=== PATIENT | male | born 1960 | race Caucasian/White ===

== ENCOUNTER 2020-01-15 15:17 | Inpatient (IN) | payer OTHER, MEDICAID ==
[~2020-01-15] VITALS: Ht 177.8 cm; Wt 64.8 kg
[2020-01-15] MEDS ORDERED: PIPERACILLIN-TAZOB 3.375GM 100 ML IV ONE (16:00)
[2020-01-15] MEDS ORDERED: DOXYCYCLINE 100MG/250ML 250 ML IV ONE ×2 (16:00→19:00)
[2020-01-15 16:13] LABS: Basophils # (auto) 0.1 10 ^3/uL (0-0.2); Eosinophils # (auto) 0.1 10 ^3/uL (0-0.8); Hemoglobin 14.9 g/dL (13.5-17.5); Monocytes # (auto) 1.1 10 ^3/uL (0-1.3); Nucleated Red Blood Cells % 0.1 %
[2020-01-15 16:14] LABS: Basophils % (auto) 1.3 % (0.0-2.0); Eosinophils % (auto) 1.6 % (0.0-7.0); Hematocrit 43.7 % (41.0-53.0); Lymphocytes # (auto) 1.9 10 ^3/uL (0.4-5.4); Lymphocytes % (auto) 21.1 % (10.0-50.0); Mean Corpuscular Hemoglobin 34.1 pg (28.0-32.0); Mean Corpuscular Volume 100.3 fL (80.0-100.0); Monocytes % (auto) 11.9 % (0.0-12.0); Neutrophils # (auto) 5.8 10 ^3/uL (1.6-8.6); Neutrophils % (auto) 64.1 % (37.0-80.0); Platelet Count (auto) 246 10^3/uL (140-450); Red Blood Cells 4.36 10^6/uL (4.5-5.90); Red Cell Distribution Width 13.4 % (11.8-14.3); White Blood Cell 9.1 10^3/uL (4.4-10.8)
[2020-01-15 16:21] LABS: Urine Bacteria MANY /hpf (None Seen); Urine Blood 2+ /uL (Negative); Urine Mucus FEW (None Seen); Urine Specific Gravity 1.008 (1.001-1.035); Urine WBC 943 /hpf (0 - 3); Urine WBC Clumps PRESENT /hpf (None Seen)
[2020-01-15 16:31] LABS: Albumin 3.7 g/dL (3.4-5.0); Calcium 8.5 mg/dL (8.5-10.1); Potassium 3.4 mmol/L (3.5-5.1)
[2020-01-15 16:33] LABS: BUN/Creatinine Ratio 12.6
[2020-01-15 16:36] LABS: Bilirubin, Total 0.5 mg/dL (0.2-1.0); Total Protein 7.8 g/dL (6.4-8.2)
[2020-01-15] MEDS ORDERED: MORPHINE SULF INJ 2 MG/ML SYRINGE 1ML IV PRN (17:30)
[2020-01-15] MEDS ORDERED: ONDANSETRON HCL 4 MG/2 ML VIAL IV PRN (17:30)
[2020-01-15] MEDS ORDERED: NITROGLYCERIN 0.4 MG SL TAB SL PRN (17:30)
[2020-01-15] MEDS ORDERED: POTASSIUM EFFERVESENT TAB 25 MEQ PO ONE (17:30)
[2020-01-15 17:32] LABS: INR 1.04 (0.9-1.15); Partial Thromboplastin Time 33.3 sec (23.64-32.05)
[2020-01-15] MEDS: PIPERACILLIN-TAZOB 3.375GM 100 ML IV SCH (17:41)
[2020-01-15] MEDS: SODIUM CHLORIDE 0.9% 1,000 ML IV SCH (17:45)
--- NOTE | 2020-01-15 19:20 | NUR ---
Opening Shift Note Assumed care of patient, awake, alert, and oriented X 4. No S/S of SOB, complains of testicular pain 5/10, will medicate for pain PRN. Bed is low, locked, two side rails raised, and call rosado is within reach, Instructed on POC and to call for assist PRN, will continue to monitor for changes Q1hr and PRN.
[2020-01-15 20:00] VITALS: BP 104/60
[2020-01-15] MEDS: ACETAMINOPHEN 500 MG TAB PO PRN (20:17)
[2020-01-15 22:00] VITALS: BP 104/60
[2020-01-15] MEDS: DOCUSATE SOD 100 MG CAP PO SCH (22:00)
[2020-01-16] MEDS: PIPERACILLIN-TAZOB 3.375GM 100 ML IV SCH ×3 (00:25→14:16)
[2020-01-16] MEDS: SODIUM CHLORIDE 0.9% 1,000 ML IV SCH ×3 (03:09→23:24)
[2020-01-16 05:00] VITALS: BP 115/64
[2020-01-16 05:17] LABS: Basophils # (auto) 0.1 10 ^3/uL (0-0.2); Basophils % (auto) 1.1 % (0.0-2.0); Eosinophils # (auto) 0.1 10 ^3/uL (0-0.8); Eosinophils % (auto) 1.7 % (0.0-7.0); Hematocrit 42.3 % (41.0-53.0); Hemoglobin 14.3 g/dL (13.5-17.5); Lymphocytes # (auto) 1.7 10 ^3/uL (0.4-5.4); Lymphocytes % (auto) 21.5 % (10.0-50.0); Mean Corpuscular Hemoglobin 33.8 pg (28.0-32.0); Mean Corpuscular Hgb Conc. 33.9 g/dL (32.0-36.0); Mean Corpuscular Volume 99.8 fL (80.0-100.0); Monocytes # (auto) 1.2 10 ^3/uL (0-1.3); Neutrophils # (auto) 4.7 10 ^3/uL (1.6-8.6); Neutrophils % (auto) 60.7 % (37.0-80.0); Nucleated Red Blood Cells % 0.1 %; Platelet Count (auto) 229 10^3/uL (140-450); Red Blood Cells 4.24 10^6/uL (4.5-5.90); Red Cell Distribution Width 13.2 % (11.8-14.3); White Blood Cell 7.8 10^3/uL (4.4-10.8)
[2020-01-16 05:40] LABS: Calcium 8.7 mg/dL (8.5-10.1); Potassium 4.3 mmol/L (3.5-5.1)
[2020-01-16 05:44] LABS: BUN/Creatinine Ratio 12.6
--- NOTE | 2020-01-16 07:20 | NUR ---
OPENING NOTE ASSUMED CARE OF PT. ALERT AND ORIENTED. NO S/S SOB OR DISTRESS. SAFETY PRECAUTIONS IN PLACE. BED SET TO LOWEST POSITION, BEDSIDE RAILS UP X2, CALL LIGHT WITHIN REACH. INSTRUCTED PT TO CALL FOR ASSISTANCE. UPDATED PT ON PLAN OF CARE. PT VERBALIZED UNDERSTANDING. WILL CONTINUE TO MONITOR Q1HR AND PRN.
[2020-01-16 08:00] VITALS: BP 104/68
[2020-01-16] MEDS ORDERED: cefTRIAXone 1GM/50ML D5W 50 ML IV SCH (09:00)
[2020-01-16] MEDS: FAMOTIDINE 20 MG TAB PO SCH (10:00)
[2020-01-16] MEDS: DOCUSATE SOD 100 MG CAP PO SCH ×2 (10:00→21:50)
[2020-01-16] MEDS: DOXYCYCLINE 100MG/250ML 250 ML IV SCH ×2 (10:32→21:50)
[2020-01-16 11:07] LABS: Cholesterol 111 mg/dL (< 200); HDL Cholesterol 48 mg/dL (40-59); LDL Cholesterol 58 mg/dL (< 100); Triglycerides 54 mg/dL (< 150)
[2020-01-16 12:00] VITALS: BP 120/71
--- NOTE | 2020-01-16 13:43 | NUR ---
MELLO CATH ORDERED MELLO CATH PLACEMENT FOR RETENTION. PATIENT IS REFUSING BLADDER SCAN AND MELLO CATH PLACEMENT. THIS NURSE EDUCATED THE PATIENT ON THE RISK AND BENEFITS. PATIENT VERBALIZED UNDERSTANDING. PATIENT IS STILL REFUSING MELLO CATH. PATIENT IS VOIDING. MD WILL BE INFORMED. WILL CONTINUE TO MONITOR Q1HR AND PRN.
--- NOTE | 2020-01-16 13:51 | NUR ---
PAGED DR. MALDONADO RE: PATIENT REFUSING MELLO CATH. NO NEW ORDERS. WILL CONTINUE TO MONITOR
--- NOTE | 2020-01-16 14:18 | NUR ---
PATIENT IS REFUSING DRESSING AND ELEVATION OF SCROTUM PER MD ORDER. EDUCATED THE PATIENT. PATIENT VERBALIZED UNDERSTANDING. STILL REFUSING TREATMENT. WILL INFORM MD. WILL CONTINUE TO MONITOR.
[2020-01-16 17:01] VITALS: BP 112/70
[2020-01-16] MEDS ORDERED: CLON0.5T PO (18:19)
[2020-01-16] MEDS ORDERED: TRAM50TA2 PO (18:19)
[2020-01-16] MEDS ORDERED: ARIP1INJ2 IM (18:19)
[2020-01-16] MEDS ORDERED: ALPR0.5T7 PO (18:19)
[2020-01-16] MEDS ORDERED: DOCU100T15 PO (18:19)
--- NOTE | 2020-01-16 19:42 | NUR ---
Opening Shift Note Assumed care of patient, awake and alert. No S/S of distress/SOB or pain. patient ambulated to the restroom without assistance steady gait. Patient educated on placement of michelle risks and benefits and dressing change per md order. patient refused. patient refused for me to asses bladder for distention and perform bladder scan.patient verbalized refusal. reeducated patient and instructed on POC and to call for assist PRN, will continue to monitor for changes Q1hr and PRN. bed in low position and call light within reach.
--- NOTE | 2020-01-16 21:44 | NUR ---
patient refusing lab draw. educated patient on benefit of having his blood drawn. patient verbalized refusal.
[2020-01-16 22:00] VITALS: BP 117/67
[2020-01-16 22:02] LABS: Free T4 (Free Thyroxine) 0.99 ng/dL (0.89-1.76)
[2020-01-16 22:03] LABS: Folate (Folic Acid) 9.58 ng/mL (5.38-24)
--- NOTE | 2020-01-16 23:43 | NUR ---
patient allowed me to apply dressing per md orders. patient continues to refuse michelle. 300ml of yellow urine output.
--- NOTE | 2020-01-16 23:43 | NUR ---
IV removal/access IV leaking. IV DC'd with clean sterile technique, catheter fully intact.Pressure dressing applied to site. Patient tolerated well. IV access obtained, via clean sterile technique by inserting 22 gauge catheter at left forearm after 1 attempt. IV secured properly. No trauma to site. Patient tolerated well.
--- NOTE | 2020-01-16 23:43 | NUR ---
Opening Shift Note Assumed care of patient, awake and alert. No S/S of distress/SOB or pain. Insructed on POC and to callfor assist PRN, will continue to monitor for changes Q1hr and PRN. Addendum: 01/16/20 at 9582 by DOMONIQUE PROCTOR RN RN wrong note
[2020-01-17 04:06] LABS: RPR Non Reactive (Non Reactive)
[2020-01-17 05:00] VITALS: BP 122/59
[2020-01-17] MEDS: PIPERACILLIN-TAZOB 3.375GM 100 ML IV SCH ×3 (05:12→11:47)
--- NOTE | 2020-01-17 05:37 | NUR ---
patient continues to refuse to have his labs drawn. per shellfish processing laborer she will return at 0900 to attempt again. patient reeducated on benefits of having blood drawn per patient " i get weak." will endorse care to dayshift rn
[2020-01-17 06:00] LABS: Sodium Urine 68 mmol/L (40-220)
[2020-01-17 06:05] LABS: Creatinine, Urine 36 mg/dL (30.0-125.0)
--- NOTE | 2020-01-17 07:09 | NUR ---
REPORT GIVEN TO DAYSHIFTR RN PATIENT DENIES SOB DISTRESS OR PAIN
--- NOTE | 2020-01-17 07:20 | NUR ---
OPENING NOTE ASSUMED CARE OF PT. ALERT AND ORIENTED. NO S/S SOB OR DISTRESS. SAFETY PRECAUTIONS IN PLACE. BED SET TO LOWEST POSITION, BEDSIDE RAILS UP X2, CALL LIGHT WITHIN REACH. INSTRUCTED PT TO CALL FOR ASSISTANCE. UPDATED PT ON PLAN OF CARE. WILL CONTINUE TO MONITOR Q1HR AND PRN.
[2020-01-17 08:00] VITALS: BP 113/72
[2020-01-17] MEDS: SODIUM CHLORIDE 0.9% 1,000 ML IV SCH ×2 (09:24→19:24)
[2020-01-17] MEDS ORDERED: CYANOCOBALAMIN (B-12) 1000 MCG/1 ML VIAL SUBCUT ONE (11:15)
[2020-01-17] MEDS: ENOXAPARIN SOD 40 MG/0.4 ML SYRINGE SC SCH (11:30)
[2020-01-17] MEDS: FAMOTIDINE 20 MG TAB PO SCH (11:30)
[2020-01-17] MEDS: DOCUSATE SOD 100 MG CAP PO SCH ×2 (11:30→22:00)
[2020-01-17] MEDS: DOXYCYCLINE 100MG/250ML 250 ML IV SCH ×2 (11:30→22:00)
[2020-01-17 12:00] VITALS: BP 123/74
[2020-01-17] MEDS: HYDROcodone-ACET 5/325MG TAB PO PRN (14:17)
[2020-01-17] MEDS ORDERED: LIDOCAINE 2% JELLY 11ml (GLYDO) UR ONE (15:15)
[2020-01-17] MEDS: MORPHINE SULF INJ 2 MG/ML SYRINGE 1ML IV PRN (15:22)
[2020-01-17 17:03] VITALS: BP 107/65
--- NOTE | 2020-01-17 17:43 | NUR ---
MELLO CATH UNSUCCESSFUL MELLO CATH INSERTION, ATTEMPTED BY DOUG MUHAMMAD.
[2020-01-17] MEDS: PIPERACILLIN-TAZO 4.5GM 100 ML IV SCH (18:22)
[2020-01-17 22:00] VITALS: BP 100/55
[2020-01-18 05:00] VITALS: BP_SYST 121; BP_DIAS 74; BP_DIAS 84
[2020-01-18] MEDS: SODIUM CHLORIDE 0.9% 1,000 ML IV SCH ×2 (05:24→15:24)
[2020-01-18] MEDS: PIPERACILLIN-TAZO 4.5GM 100 ML IV SCH ×4 (06:00→17:16)
--- NOTE | 2020-01-18 08:45 | NUR ---
OFF UNIT PATIENT OFF UNIT VIA BED TO PREOP. NO SING OF SOB/DISTRESS NOTED.
[2020-01-18 09:14] LABS: Hepatitis B Surface Antibody Negative
[2020-01-18] MEDS ORDERED: levoFLOXacin 500MG 100 ML IV ONE (09:31)
[2020-01-18 09:32] VITALS: BP 131/70
[2020-01-18] MEDS ORDERED: LIDOCAINE 1% HCL (LOCAL ANESTH.) INJ 20ML MDV ONE (09:39)
[2020-01-18] MEDS ORDERED: BUPIVACAINE 0.25% INJ 50ML VIAL ONE (09:39)
[2020-01-18 09:48] LABS: Hepatitis A Total Antibody Positive
[2020-01-18] MEDS ORDERED: PROPOFOL 10 MG/ML 20 ML IV ONE (09:51)
[2020-01-18] MEDS ORDERED: fentaNYL CITRATE 100 MCG/2 ML VL ONE (09:51)
[2020-01-18] MEDS: DOCUSATE SOD 100 MG CAP PO SCH ×2 (10:00→22:00)
[2020-01-18] MEDS: DOXYCYCLINE 100MG/250ML 250 ML IV SCH ×2 (10:00→22:00)
[2020-01-18] MEDS: FAMOTIDINE 20 MG TAB PO SCH (10:00)
[2020-01-18] MEDS: CYANOCOBALAMIN 500 MCG TAB PO SCH (10:00)
[2020-01-18] MEDS: ENOXAPARIN SOD 40 MG/0.4 ML SYRINGE SC SCH (10:00)
[2020-01-18 10:10] LABS: Hepatitis B Core Total AB Negative; Hepatitis B Surface Antigen Negative (Negative); Hepatitis C Antibody Negative (Negative)
--- NOTE | 2020-01-18 11:30 | NUR ---
BACK ON UNIT PATIENT BACK ON UNIT VIA BED FROM POSTOP. NO S/S OF SOB/DISTRESS NOTED. DRESSING CLEAN DRY AND INTACT. WILL CONTINUE TO MONITOR Q1HR AND PRN.
[2020-01-18 12:28] VITALS: BP 102/72
[2020-01-18] MEDS: HYDROcodone-ACET 5/325MG TAB PO PRN (14:04)
[2020-01-18 17:15] VITALS: BP 104/73
[2020-01-18 22:00] VITALS: BP 107/63
[2020-01-19] MEDS: SODIUM CHLORIDE 0.9% 1,000 ML IV SCH ×3 (01:24→21:24)
[2020-01-19] MEDS: MORPHINE SULF INJ 2 MG/ML SYRINGE 1ML IV PRN (04:05)
[2020-01-19 05:00] VITALS: BP 104/67
[2020-01-19] MEDS: PIPERACILLIN-TAZO 4.5GM 100 ML IV SCH ×4 (06:00→18:20)
--- NOTE | 2020-01-19 08:00 | NUR ---
Opening Shift Note Assumed care of patient, awake and alert ambulating to bathroom. No S/S of distress/SOB or pain. Instructed on POC and to call for assist PRN, will continue to monitor for changes Q1hr and PRN.
[2020-01-19 08:41] VITALS: BP 111/73
[2020-01-19] MEDS: FAMOTIDINE 20 MG TAB PO SCH (10:09)
[2020-01-19] MEDS: DOXYCYCLINE 100MG/250ML 250 ML IV SCH ×2 (10:09→21:25)
[2020-01-19] MEDS: DOCUSATE SOD 100 MG CAP PO SCH ×2 (10:09→21:25)
[2020-01-19] MEDS: ENOXAPARIN SOD 40 MG/0.4 ML SYRINGE SC SCH (10:10)
[2020-01-19] MEDS: CYANOCOBALAMIN 500 MCG TAB PO SCH (10:10)
[2020-01-19 13:00] VITALS: BP 115/68
--- NOTE | 2020-01-19 13:14 | NUR ---
Nutrition Assessment Notes Please refer to link for full assessment notes. Est energy needs: 2083-2726 kcals (25-30 kcal/kgBW) Est protein needs: 49-61 gms/day (0.8-1.0 gm/kgBW) Will continue to monitor and reassess prn. Addendum: 01/19/20 at [address] Amended: Links added.
--- NOTE | 2020-01-19 14:15 | NUR ---
Received referral to see pt regarding Discharge plans. hide mill worker received referral for pt to go to rehab for a week or so. Pt states he does not want to go as he currently lives in a Board and care and would rather return there on discharge. Pt was adamant about returning back to the [facility] on Wednesday. Addendum: 01/22/20 at 1427 by AYESHA GONZALES Amended: Links added.
--- NOTE | 2020-01-19 14:50 | NUR ---
Patient states he does not want to go to SNF. He want's to go home. He has someone at home that can assist him, so he wants to be discharged home. Will notify
--- NOTE | 2020-01-19 16:29 | NUR ---
Refusing SNF Dr. River notified that patient refusing SNF placement.
--- NOTE | 2020-01-19 16:34 | NUR ---
Received Social Service consult to place pt in a SNF. However, Halal Meat Packer went to speak with pt and he stated he did not want to go to a snf as he already lived in a board and care. Pt stated he had lived there for 3 yrs. Spoke to his nurse who already knew about his decision.
[2020-01-19 17:00] VITALS: BP 112/75
[2020-01-19] MEDS: TAMSULOSIN HYDROCHLORIDE 0.4 MG CAP PO SCH (18:16)
--- NOTE | 2020-01-19 19:35 | NUR ---
Opening Shift Note Assumed care of patient, awake and alert. No S/S of distress/SOB or pain. Bed in lowest locked position, side rails up x2, call light within reach. Instructed on POC and to call for assist PRN, will continue to monitor for changes Q1hr and PRN. Addendum: 01/20/20 at 0207 by UNIQUE ESPINAL RN RN ADDITION: Dressing to left testicle clean, dry, and intact.
[2020-01-19] MEDS: HYDROcodone-ACET 5/325MG TAB PO PRN (21:26)
[2020-01-19 22:00] VITALS: BP 114/69
--- NOTE | 2020-01-19 22:26 | NUR ---
Patient reporting 6/10 testicular pain, medicated with [place] as ordered at 21:26 (see emar). Patient reassessed at this time, reports pain now 0/10. No s/s of distress. Will continue to monitor.
--- NOTE | 2020-01-19 22:30 | NUR ---
Patient refusing dressing change tonight, requesting to have it in the morning, reports he "wants to sleep tonight". Patient educated on importance of following MD's orders to decrease risk of infection, patient continuing to refuse at this time. No s/s of distress, will continue to monitor.
[2020-01-20] MEDS: PIPERACILLIN-TAZO 4.5GM 100 ML IV SCH ×4 (00:09→18:08)
[2020-01-20 05:00] VITALS: BP 103/59
--- NOTE | 2020-01-20 05:00 | NUR ---
Dressing Change Iodaform packing acquired by charge nurse Tiffanie ESTEBAN. With the assistance of Jewell ESTEBAN, site cleansed with sterile normal saline, iodaform packing changed with sterile procedure, and site covered with sterile gauze. Patient tolerated well. No s/s of distress, will continue care.
--- NOTE | 2020-01-20 05:15 | NUR ---
Patient educated on michelle care including to keep bag below bladder, keep nataliya area clean, and how to drain bag. Patient verbalized understanding. Will continue care and continue to enforce education throughout remainder of the shift.
[2020-01-20 05:57] LABS: Basophils # (auto) 0.1 10 ^3/uL (0-0.2); Basophils % (auto) 1.1 % (0.0-2.0); Eosinophils # (auto) 0.2 10 ^3/uL (0-0.8); Eosinophils % (auto) 1.9 % (0.0-7.0); Hematocrit 43.7 % (41.0-53.0); Hemoglobin 14.9 g/dL (13.5-17.5); Lymphocytes % (auto) 24.2 % (10.0-50.0); Mean Corpuscular Hemoglobin 33.6 pg (28.0-32.0); Mean Corpuscular Volume 98.9 fL (80.0-100.0); Monocytes # (auto) 1.3 10 ^3/uL (0-1.3); Monocytes % (auto) 15.3 % (0.0-12.0); Neutrophils # (auto) 4.8 10 ^3/uL (1.6-8.6); Neutrophils % (auto) 57.5 % (37.0-80.0); Nucleated Red Blood Cells % 0.9 %; Platelet Count (auto) 228 10^3/uL (140-450); Red Blood Cells 4.42 10^6/uL (4.5-5.90); Red Cell Distribution Width 13.1 % (11.8-14.3); White Blood Cell 8.3 10^3/uL (4.4-10.8)
[2020-01-20 06:08] LABS: Potassium 4.4 mmol/L (3.5-5.1)
[2020-01-20 06:10] LABS: BUN/Creatinine Ratio 15.3; Calcium 8.7 mg/dL (8.5-10.1)
--- NOTE | 2020-01-20 07:03 | NUR ---
Closing Note Patient sitting up in bed, awake and alert. No s/s of distress. Call light within reach. Care endorsed to dayshift RN.
[2020-01-20 09:01] VITALS: BP 100/61
[2020-01-20] MEDS: DOXYCYCLINE 100MG/250ML 250 ML IV SCH ×2 (11:50→20:58)
[2020-01-20] MEDS: DOCUSATE SOD 100 MG CAP PO SCH ×2 (11:51→20:58)
[2020-01-20] MEDS: MECLIZINE HCL 25 MG TAB PO SCH ×3 (11:51→20:58)
[2020-01-20] MEDS: SODIUM CHLORIDE 0.9% 1,000 ML IV SCH ×2 (11:51→18:08)
[2020-01-20] MEDS: ENOXAPARIN SOD 40 MG/0.4 ML SYRINGE SC SCH (11:51)
[2020-01-20] MEDS: CYANOCOBALAMIN 500 MCG TAB PO SCH (11:51)
[2020-01-20] MEDS: FAMOTIDINE 20 MG TAB PO SCH (11:51)
[2020-01-20 13:00] VITALS: BP 97/63
[2020-01-20 16:50] VITALS: BP 110/57
--- NOTE | 2020-01-20 18:02 | NUR ---
PRN WOUND CARE PERFORMED. PT TOLERATED WELL.
[2020-01-20] MEDS: TAMSULOSIN HYDROCHLORIDE 0.4 MG CAP PO SCH (18:08)
--- NOTE | 2020-01-20 19:30 | NUR ---
Opening Shift Note Assumed care of patient, eyes closed, respirations even and unlabored, appears asleep. No S/S of distress/SOB or pain. Bed in lowest locked position, side rails up x2, call light within reach. Dressing to left testicle clean, dry, and intact. Instructed on POC and to call for assist PRN, will continue to monitor for changes Q1hr and PRN.
[2020-01-20 20:00] VITALS: BP 102/70
[2020-01-20] MEDS: HYDROcodone-ACET 5/325MG TAB PO PRN (21:12)
[2020-01-20 22:00] VITALS: BP 102/70
--- NOTE | 2020-01-20 22:12 | NUR ---
Patient reporting 6/10 testicular pain, medicated with [place] as ordered at 21:12 (see emar). Patient reassessed at this time, reports pain now 0/10. No s/s of distress. Will continue to monitor.
--- NOTE | 2020-01-20 23:30 | NUR ---
IV removal and insertion IV to right forearm DC'd accidentally by patient, catheter fully intact. Pressure dressing applied to site. Patient tolerated well. IV access obtained, via clean sterile technique by inserting 22 gauge catheter to patient's right forearm after two attempts. IV secured properly. No trauma to site. Patient tolerated well. Doxycycline continuing to infuse now that IV access has been obtained, will administer Zosyn once Doxycycline has finished infusing. No s/s of distress. Will continue to monitor.
[2020-01-21] MEDS: PIPERACILLIN-TAZO 4.5GM 100 ML IV SCH ×5 (01:18→23:23)
[2020-01-21] MEDS: SODIUM CHLORIDE 0.9% 1,000 ML IV SCH ×3 (03:28→23:24)
[2020-01-21 05:00] VITALS: BP 103/67
[2020-01-21] MEDS: MECLIZINE HCL 25 MG TAB PO SCH ×4 (06:05→21:41)
[2020-01-21 06:19] LABS: Basophils # (auto) 0.1 10 ^3/uL (0-0.2); Eosinophils # (auto) 0.4 10 ^3/uL (0-0.8); Eosinophils % (auto) 5.6 % (0.0-7.0); Hematocrit 42.8 % (41.0-53.0); Hemoglobin 14.8 g/dL (13.5-17.5); Lymphocytes # (auto) 1.8 10 ^3/uL (0.4-5.4); Lymphocytes % (auto) 24.6 % (10.0-50.0); Mean Corpuscular Hemoglobin 34.4 pg (28.0-32.0); Mean Corpuscular Hgb Conc. 34.6 g/dL (32.0-36.0); Mean Corpuscular Volume 99.6 fL (80.0-100.0); Monocytes # (auto) 0.9 10 ^3/uL (0-1.3); Monocytes % (auto) 12.6 % (0.0-12.0); Neutrophils # (auto) 4.1 10 ^3/uL (1.6-8.6); Neutrophils % (auto) 56.2 % (37.0-80.0); Nucleated Red Blood Cells % 0.1 %; Platelet Count (auto) 208 10^3/uL (140-450); Red Cell Distribution Width 13.3 % (11.8-14.3); White Blood Cell 7.3 10^3/uL (4.4-10.8)
[2020-01-21 06:35] LABS: BUN/Creatinine Ratio 15.5; Calcium 9.3 mg/dL (8.5-10.1); Potassium 4.2 mmol/L (3.5-5.1)
--- NOTE | 2020-01-21 06:50 | NUR ---
Closing Note Patient sitting up in bed, awake and alert. No s/s of distress. Call light within reach. Sitter at bedside. Care endorsed to dayshift RN.
--- NOTE | 2020-01-21 07:55 | NUR ---
OPENING SHIFT NOTE Resumed care of patient. PT is awake and alert. No S/S of distress/SOB. Instructed on POC and to call for assist PRN, will continue to monitor for changes Q1hr and PRN.
[2020-01-21 08:52] VITALS: BP 102/69
[2020-01-21] MEDS: FAMOTIDINE 20 MG TAB PO SCH (09:46)
[2020-01-21] MEDS: DOXYCYCLINE 100MG/250ML 250 ML IV SCH ×2 (09:46→21:42)
[2020-01-21] MEDS: ENOXAPARIN SOD 40 MG/0.4 ML SYRINGE SC SCH (09:47)
[2020-01-21] MEDS: DOCUSATE SOD 100 MG CAP PO SCH ×3 (09:47→22:00)
[2020-01-21] MEDS: HYDROcodone-ACET 5/325MG TAB PO PRN ×2 (09:47→21:42)
[2020-01-21] MEDS: CYANOCOBALAMIN 500 MCG TAB PO SCH (09:47)
[2020-01-21 13:00] VITALS: BP 114/58
[2020-01-21 16:45] VITALS: BP 107/70
[2020-01-21] MEDS: TAMSULOSIN HYDROCHLORIDE 0.4 MG CAP PO SCH (17:44)
--- NOTE | 2020-01-21 20:00 | NUR ---
Opening Shift Note Assumed care of patient, awake and alert. No S/S of distress/SOB or pain. Instructed on POC and to call for assist PRN, will continue to monitor for changes Q1hr and PRN.Dressing in the scrotum dry and intact.
--- NOTE | 2020-01-21 21:42 | NUR ---
Medicated with [place] tab. one .p.o for scrotal pain -05/03.
[2020-01-21 21:44] VITALS: BP 112/73
[2020-01-22 02:28] VITALS: BP 94/60
[2020-01-22] MEDS: MECLIZINE HCL 25 MG TAB PO SCH ×4 (05:21→22:32)
[2020-01-22] MEDS: PIPERACILLIN-TAZO 4.5GM 100 ML IV SCH ×3 (05:22→18:13)
[2020-01-22 05:29] VITALS: BP 108/66
--- NOTE | 2020-01-22 07:06 | NUR ---
Report given to Jennifer Taylor, patient is resting no distress.
--- NOTE | 2020-01-22 07:15 | NUR ---
Opening Shift Note Assumed care of patient, awake and alert. No S/S of distress/SOB or pain. Instructed on POC and to call for assist PRN, will continue to monitor for changes Q1hr and PRN. Fall precautions in place per safety protocol.
[2020-01-22 08:00] VITALS: BP 102/66
[2020-01-22] MEDS: SODIUM CHLORIDE 0.9% 1,000 ML IV SCH ×2 (09:24→22:33)
[2020-01-22] MEDS: DOCUSATE SOD 100 MG CAP PO SCH ×2 (10:00→22:32)
[2020-01-22] MEDS: ENOXAPARIN SOD 40 MG/0.4 ML SYRINGE SC SCH (10:24)
[2020-01-22] MEDS: FAMOTIDINE 20 MG TAB PO SCH (10:24)
[2020-01-22] MEDS: DOXYCYCLINE 100MG/250ML 250 ML IV SCH ×2 (10:24→22:32)
[2020-01-22] MEDS: CYANOCOBALAMIN 500 MCG TAB PO SCH (10:25)
[2020-01-22] MEDS: HYDROcodone-ACET 5/325MG TAB PO PRN (10:43)
--- NOTE | 2020-01-22 10:51 | NUR ---
Patient requesting pain medications for pain 04/03. Administered Ulysses per pain sliding scale. Dressing changed done using sterile technique. Patient tolerated well. Will cont to monitor patient.
--- NOTE | 2020-01-22 11:35 | NUR ---
Hospitalist at bedside MD River at bedside, aware of patient status. No new orders received at this time. MD River spoke with caregiver Melinda and updated on POC.
[2020-01-22 12:00] VITALS: BP 106/66
--- NOTE | 2020-01-22 14:00 | NUR ---
IV insertion IV access obtained, via clean sterile technique by inserting 20 gauge catheter at the left FA after 1 attempt. IV secured properly. No trauma to site. Patient tolerated procedure well. Old IV DC'd with sterile technique due to infiltration, catheter fully intact. Pressure dressing applied to site. Patient tolerated procedure well.
--- NOTE | 2020-01-22 14:24 | NUR ---
Received Social Service consult for SNF placement for wound care and rehab Zosyn 4.5 q 8hrs for 5 days IV for UTI. Addendum: 01/22/20 at 1427 by AYESHA WHITFIELD SS Amended: Links added. Addendum: 01/22/20 at 1512 by AYESHA WHITFIELD SS The pt's chart was ffaxed over to [facility].
--- NOTE | 2020-01-22 16:10 | NUR ---
re-assessment Per ss consult SNF for IV ABX. Patient agrees to SNF for IV ABX. Per Ciarra at [facility] she has accepted patient to room 224[address] and Dr Lozano is the accepting MD. Marii financial center manager is getting auth for SNF and transport. Addendum: 01/22/20 at 1614 by Carmela Koroma Amended: Links added.
--- NOTE | 2020-01-22 16:38 | NUR ---
I faxed SNF order to [facility]-letting them know we need authorization for [facility]-that they are willing to take patient pending authorization. I called [facility] Nail Making Machine Setter Dusty-she said as of a week ago they are not authorizing [facility] for any of their patients.
--- NOTE | 2020-01-22 16:42 | NUR ---
Received referral to fax pt's information to [facility]. The facility did not want to take pt due to his smoking. The pt's chart was faxed to [facility] who did accept the pt. However, [facility] would not approve the pt to go their. Pt's packet was faxed to Kathi. Awaiting decision.
[2020-01-22 17:00] VITALS: BP 106/63
[2020-01-22] MEDS: TAMSULOSIN HYDROCHLORIDE 0.4 MG CAP PO SCH (18:13)
--- NOTE | 2020-01-22 19:25 | NUR ---
Endorsed care to sera Yu. Patient restin gin bed, no distress, sob, or pain noted.
[2020-01-22] MEDS: ACETAMINOPHEN 500 MG TAB PO PRN (19:42)
[2020-01-23] MEDS: PIPERACILLIN-TAZO 4.5GM 100 ML IV SCH ×4 (00:28→18:00)
[2020-01-23 05:00] VITALS: BP 98/55
[2020-01-23] MEDS: SODIUM CHLORIDE 0.9% 1,000 ML IV SCH (05:24)
[2020-01-23] MEDS: MECLIZINE HCL 25 MG TAB PO SCH ×3 (06:33→18:00)
--- NOTE | 2020-01-23 07:20 | NUR ---
Opening shift note Care of patient assumed from NOC RN. Patient is AOx4, no s/s of pain, sob, or distress noted at this time. Bed is in lowest locked position, side rails up x2 and call light is within reach. I updated patient on plan of care and patient verbalized understanding. I will continue to monitor Q1HR and PRN.
[2020-01-23 08:00] VITALS: BP 100/73
[2020-01-23] MEDS: DOCUSATE SOD 100 MG CAP PO SCH (10:00)
[2020-01-23] MEDS: FAMOTIDINE 20 MG TAB PO SCH (10:40)
[2020-01-23] MEDS: CYANOCOBALAMIN 500 MCG TAB PO SCH (10:41)
[2020-01-23] MEDS: ENOXAPARIN SOD 40 MG/0.4 ML SYRINGE SC SCH (10:41)
[2020-01-23] MEDS: DOXYCYCLINE 100MG/250ML 250 ML IV SCH (10:42)
[2020-01-23] MEDS: ACETAMINOPHEN 500 MG TAB PO PRN (10:55)
[2020-01-23 12:00] VITALS: BP 112/68
--- NOTE | 2020-01-23 13:00 | NUR ---
Call placed to high school social studies tutor Left a message to Carmela moreno regarding SNF placement. Per MD River he would like patient to be sent [facility], updated MD that [facility] will not take the patient and that ss is awaiting call back from [facility] for placement.
--- NOTE | 2020-01-23 13:21 | NUR ---
I called [facility] tool planner Teresita [phone] and left message requesting authorization for [facility]-awaiting return call.
--- NOTE | 2020-01-23 14:26 | NUR ---
I received a message from Teresita at [facility] requesting PT notes and wound care notes/order. I faxed PT eval and wound care order to [facility].
--- NOTE | 2020-01-23 14:38 | NUR ---
I called [facility] master planner Teresita [phone] and left message asking again for authorization for [facility]-awaiting return call.
--- NOTE | 2020-01-23 14:40 | NUR ---
Spoke to [facility] Received call from Mendy from [facility] transport regarding patients transport location and placement. Referred them to call Carmela Koroma at extension [phone] regarding transfer information. Also provided her with my extension.
--- NOTE | 2020-01-23 15:29 | NUR ---
Called Social service Called Marii Montoya regarding the call i received from [facility] transport. Informed her that [facility] wanted the address for picker and sorter load and unload and drop off. She stated that she will be contacting [facility] regarding transport. She stated that placement is still pending with Kathi.
--- NOTE | 2020-01-23 15:48 | NUR ---
I received a call from [facility] brand planner Teresita-the authorization number for [facility] is [id number] and the authorization for transportation is [id number].
--- NOTE | 2020-01-23 16:15 | NUR ---
Spoke to mental health social worker Spoke to JANET Kennedy regarding placement. Per Marcia patient will be going to [facility] to room 405. The accepting physician is Dr. Brewer and [facility] will be picking patient up at 1800.
--- NOTE | 2020-01-23 16:23 | NUR ---
I called [facility] ([phone]) and spoke with Li-provided her with [facility] auth number [id number] to be picked up at 1800 to be transported to [facility] room 405.
--- NOTE | 2020-01-23 16:28 | NUR ---
Pt will be leaving from [address] [place] [address] to [facility]. Pt will go to room 405. Phone [employer] [phone].The authorization is [id number]. Called Yes[facility] and left information on phone as it was just ringing and ringing. Pt has agreed to go.
[2020-01-23 17:01] VITALS: BP 131/74
--- NOTE | 2020-01-23 17:10 | NUR ---
Received call from [facility] transport updated me that filler picker time has changed to 1845.
[2020-01-23] MEDS: TAMSULOSIN HYDROCHLORIDE 0.4 MG CAP PO SCH (18:00)
--- NOTE | 2020-01-23 18:30 | NUR ---
Report given to receiving Cory Amin. I will be faxing medication recc. the facility.
--- NOTE | 2020-01-23 19:00 | NUR ---
Report given to [facility] transport team. Patient is stable, no s/s of pain, sob, or distress noted at time of transfer.
== END 2020-01-23 19:05 | DRG 717 ==
LOC: ER 15:17 → WEST WING 15:18
PROVIDERS: ADMIT Nurse Practitioner Acute Care; ATTEND Internal Medicine
PROC: 0T9B80Z Drainage of Bladder with Drainage Device, Via Natural or Artificial Opening Endoscopic (ICD-10-PCS; 2020-01-18)
PROC: 0V950ZZ Drainage of Scrotum, Open Approach (ICD-10-PCS; principal; 2020-01-18 09:44)
DX: N45.4 Abscess of epididymis or testis (principal); N13.6 Pyonephrosis; B15.9 Hepatitis A without hepatic coma; N39.0 Urinary tract infection, site not specified; N50.819 Testicular pain, unspecified; N18.3 Chronic kidney disease, stage 3 (moderate); F31.9 Bipolar disorder, unspecified; R33.9 Retention of urine, unspecified; B96.5 Pseudomonas (aeruginosa) (mallei) (pseudomallei) as the cause of diseases classified elsewhere; Z72.0 Tobacco use; J44.9 Chronic obstructive pulmonary disease, unspecified; H83.09 Labyrinthitis, unspecified ear; N40.1 Benign prostatic hyperplasia with lower urinary tract symptoms
CPT/HCPCS: 36415; 71046; 76700; 76870; 80048; 80053; 80061; 81001; 82306; 82565; 82570; 82607; 82746; 83036; 83605; 83735; 84154; 84300; 84439; 84443; 85025; 85610; 85730; 86592; 86703; 86704; 86706; 86708; 86803; 87040; 87070; 87075; 87077; 87086; 87088; 87186; 87205; 87340; 96365; G0378; J1956; J2001; J2543; J2704; J3490

== ENCOUNTER → 2020-03-16 | Emergency (ER) | payer OTHER, MEDICAID ==
[~2020-03-16] VITALS: Ht 177.8 cm; Wt 72.6 kg
[~2020-03-16] MED LIST: ALPR0.5T7 PO; ARIP1INJ2 IM; CLON0.5T PO; DOCU100T15 PO; TRAM50TA2 PO; cefTRIAXone 1GM/50ML D5W 50 ML IV ONE
[2020-03-16 17:31] LABS: Basophils # (auto) 0.1 10 ^3/uL (0-0.2); Eosinophils # (auto) 0.1 10 ^3/uL (0-0.8); Lymphocytes # (auto) 1.4 10 ^3/uL (0.4-5.4); Monocytes # (auto) 0.8 10 ^3/uL (0-1.3); Platelet Count (auto) 215 10^3/uL (140-450)
[2020-03-16 17:33] LABS: Eosinophils % (auto) 1.5 % (0.0-7.0); Hematocrit 40.9 % (41.0-53.0); Lymphocytes % (auto) 17.6 % (10.0-50.0); Mean Corpuscular Hemoglobin 34.8 pg (28.0-32.0); Mean Corpuscular Hgb Conc. 34.3 g/dL (32.0-36.0); Mean Corpuscular Volume 101.2 fL (80.0-100.0); Monocytes % (auto) 10.5 % (0.0-12.0); Neutrophils # (auto) 5.6 10 ^3/uL (1.6-8.6); Neutrophils % (auto) 69.4 % (37.0-80.0); Nucleated Red Blood Cells % 0.1 %; Red Blood Cells 4.04 10^6/uL (4.5-5.90); Red Cell Distribution Width 13.8 % (11.8-14.3)
[2020-03-16 17:46] LABS: Albumin 3.5 g/dL (3.4-5.0); Anion Gap 8 (5-15); Blood Urea Nitrogen 18 mg/dL (7-18); Calcium 8.1 mg/dL (8.5-10.1); Carbon Dioxide 19 mmol/L (21-32); Chloride 111 mmol/L (98-107); Glucose 78 mg/dL (74-106); Magnesium 2.2 mg/dL (1.6-2.6); Potassium 4.4 mmol/L (3.5-5.1); Sodium 138 mmol/L (136-145)
[2020-03-16 17:52] LABS: Alanine Aminotransferase 17 U/L (16-61); Alkaline Phosphatase 73 U/L (45-117); Aspartate Aminotransferase 15 U/L (15-37); BUN/Creatinine Ratio 8.4; Bilirubin, Total 0.4 mg/dL (0.2-1.0); GFR African American 41 mL/min; GFR Non-African American 34 mL/min; Total Protein 7.1 g/dL (6.4-8.2)
[2020-03-16 18:29] LABS: Urine Bacteria FEW /hpf (None Seen); Urine Blood TRACE /uL (Negative); Urine Specific Gravity 1.004 (1.001-1.035); Urine WBC 165 /hpf (0 - 3)
[2020-03-16 21:07] VITALS: BP 123/73
== END | disposition home or self-care (01) ==
LOC: EDUNIT# 16:03 → ER 16:16 → EDBD 16:16
DX: F29 Unspecified psychosis not due to a substance or known physiological condition (principal); F32.9 Major depressive disorder, single episode, unspecified; N39.0 Urinary tract infection, site not specified; F17.210 Nicotine dependence, cigarettes, uncomplicated
CPT/HCPCS: 36415; 71045; 80053; 81001; 83735; 84443; 84484; 85025; 93005; 96365; 99285; J0696

== ENCOUNTER 2023-12-25 19:45 | Inpatient (IN) | payer MEDICARE, MEDICAID ==
[~2023-12-25] VITALS: Ht 182.9 cm; Wt 60.9 kg
[~2023-12-25 19:45] MED LIST changes: +CLON-1003 PO; -CLON0.5T PO; -cefTRIAXone 1GM/50ML D5W 50 ML IV ONE
[2023-12-25 23:00] VITALS: BP 150/83; PULSE 91; RESP 16; O2SAT 98
[2023-12-25 23:15] VITALS: BP 139/76; PULSE 85; RESP 17; O2SAT 97
[2023-12-25 23:30] VITALS: BP_SYST 105; BP_SYST 146; BP_DIAS 62; BP_DIAS 64; PULSE 73; RESP 17; O2SAT 96
[2023-12-25 23:45] VITALS: BP_SYST 123; BP_SYST 156; BP_DIAS 76; BP_DIAS 84; PULSE 76; RESP 13; O2SAT 100
[2023-12-26] VITALS (107 sets, daily range): BP systolic 33–177; BP diastolic 27–85; PULSE 53–114; RESP 12–27; TEMP 94.8–100.2; O2SAT 78–100
[2023-12-26] MEDS: MIDAZOLAM DRIP 50 mg/50mL 50 ML IV SCH (00:15)
[2023-12-26] MEDS: NOREPINEPHRINE 8 MG/250ML KIT 250 ML IV SCH (00:15)
[2023-12-26] MEDS: PHENYLEPHRINE IV 250 ML IV SCH (00:15)
[2023-12-26] MEDS: VASOPRESSIN 20 UNITS in SODIUM CHL 0.9% 99 ML IV SCH (00:15)
[2023-12-26 00:29] LABS: Base Excess -15.2 mmol/L (-2.0-2.0)
[2023-12-26] MEDS ORDERED: NITROGLYCERIN 0.4 MG SL TAB SL PRN (00:30)
[2023-12-26 01:12] LABS: Base Excess -16.9 mmol/L (-2.0-2.0)
[2023-12-26] MEDS: VASOPRESSIN 20 UNIT/ML ONE (01:20)
[2023-12-26] MEDS: SODIUM BICARB 8.4% 50Meq/50ml SYR Vial IV ONE ×2 (01:45→15:52)
[2023-12-26] MEDS ORDERED: ACETAMINOPHEN 650 MG RECT SUPP PR PRN (01:45)
[2023-12-26] MEDS: SODIUM BICARB 50mEq/50ml Vial 100 ML in SOD CHL 0.45% 1,000 ML IV SCH (01:45)
[2023-12-26 02:27] LABS: Hematocrit 36.8 % (41.0-53.0); Hemoglobin 11.5 g/dL (13.5-17.5); Mean Corpuscular Hemoglobin 28.6 pg (28.0-32.0); Mean Corpuscular Hgb Conc. 31.3 g/dL (32.0-36.0); Mean Corpuscular Volume 91.3 fL (80.0-100.0); Red Blood Cells 4.03 10^6/uL (4.5-5.90); Red Cell Distribution Width 14.4 % (11.8-14.3); White Blood Cell 24.9 10^3/uL (4.4-10.8)
[2023-12-26 02:30] LABS: Basophils % (manual) 0 (0.0-2.0); Blast Cells 0; Eosinophils % (manual) 0 (0-7); Metamyelocytes % 0; Monocytes % (manual) 0 (0-12); Myelocytes % 0; Promyelocytes % 0; Reactive Lymphocytes 0
[2023-12-26] MEDS: EPINEPHrine HCL 250 ML IV SCH (02:45)
[2023-12-26 02:48] LABS: Alanine Aminotransferase 228 U/L (7-40); Albumin 2.5 g/dL (3.2-4.8); Alkaline Phosphatase 116 U/L (46-116); Anion Gap 12 (5-15); Aspartate Aminotransferase 396 U/L (13-40); Bilirubin, Total 0.3 mg/dL (0.2-1.0); Blood Urea Nitrogen 76 mg/dL (9-23); Calcium 7.9 mg/dL (8.7-10.4); Carbon Dioxide 21 mmol/L (20-30); Chloride 111 mmol/L (98-107); Glucose 166 mg/dL (74-106); Potassium 3.9 mmol/L (3.5-5.1); Sodium 144 mmol/L (136-145); Total Protein 5.4 g/dL (5.7-8.2)
[2023-12-26] MEDS ORDERED: cefTRIAXone 2GM/50ML D5W 50 ML IV SCH (03:00)
[2023-12-26] MEDS ORDERED: VANCOMYCIN PER PHARMACY 0 MG IV SCH (04:30)
[2023-12-26 04:57] LABS: Band Neutrophils % (manual) 39; Lymphocytes % (manual) 4 (10.0-50.0); Platelet Estimate Adequate; RBC Morphology Normal
[2023-12-26] MEDS: NOREPINEPHRINE BITARTRATE 32 MG in SODIUM CHL 0.9% 218 ML IV SCH (05:00)
[2023-12-26] MEDS: VANCOMYCIN 1GM/200ML 200 ML IV ONE (05:00)
[2023-12-26] MEDS: PHENYLEPHRINE INJ 80 MG in SODIUM CHL 0.9% 242 ML IV SCH (05:00)
[2023-12-26 09:21] LABS: Urine Bacteria NONE SEEN /hpf (None Seen); Urine Blood 2+ /uL (Negative); Urine Clarity CLOUDY (Clear); Urine Color Yellow (Yellow); Urine Mucus FEW (None Seen); Urine Protein, UAD 2+ (Negative); Urine Specific Gravity 1.014 (1.001-1.035); Urine Urobilinogen Normal (Negative); Urine WBC 461 /hpf (0 - 3)
[2023-12-26 09:25] LABS: Creatinine, Urine 40.92 mg/dL (30.0-125.0)
[2023-12-26 09:25] LABS: Hematocrit 36.4 % (41.0-53.0); Hemoglobin 11.5 g/dL (13.5-17.5); Mean Corpuscular Hemoglobin 28.6 pg (28.0-32.0); Mean Corpuscular Hgb Conc. 31.6 g/dL (32.0-36.0); Mean Corpuscular Volume 90.6 fL (80.0-100.0); Red Blood Cells 4.02 10^6/uL (4.5-5.90); Red Cell Distribution Width 14.4 % (11.8-14.3); White Blood Cell 24.6 10^3/uL (4.4-10.8)
[2023-12-26 09:28] LABS: Protein, Urine 306.2 mg/dL (0.0-11.9); Urine Protein/Creatinine Ratio 7.48
[2023-12-26 09:45] LABS: Alanine Aminotransferase 308 U/L (7-40); Albumin 2.6 g/dL (3.2-4.8); Alkaline Phosphatase 133 U/L (46-116); Anion Gap 12 (5-15); Aspartate Aminotransferase 442 U/L (13-40); BUN/Creatinine Ratio 30.4 (10.0-20.0); Calcium 7.2 mg/dL (8.5-10.1); Carbon Dioxide 19 mmol/L (20-30); Chloride 112 mmol/L (98-107); Glucose 122 mg/dL (74-106); Potassium 4.1 mmol/L (3.5-5.1); Sodium 143 mmol/L (136-145)
[2023-12-26 09:46] LABS: Bilirubin, Total 0.2 mg/dL (0.2-1.0); Total Protein 5.5 g/dL (5.7-8.2)
[2023-12-26 09:55] LABS: Basophils % (manual) 0 (0.0-2.0); Blast Cells 0; Eosinophils % (manual) 0 (0-7); Metamyelocytes % 0; Myelocytes % 0; Promyelocytes % 0; Reactive Lymphocytes 0
[2023-12-26 10:01] LABS: Blood Urea Nitrogen 84 mg/dL (9-23); Lactic Acid w/Reflex 2.5 mmol/L (0.4-2.0)
[2023-12-26 10:19] LABS: Magnesium 2.2 mg/dL (1.6-2.6)
[2023-12-26 10:20] LABS: Phosphorus 9.3 mg/dL (2.4-5.1)
[2023-12-26 10:39] LABS: Band Neutrophils % (manual) 30; Lymphocytes % (manual) 5 (10.0-50.0); Monocytes % (manual) 2 (0-12); Platelet Estimate Adequate; Toxic Granulation Marked
[2023-12-26] MEDS: SODIUM BICARB 50mEq/50ml Vial 150 ML in D5W 5% 1,000 ML IV SCH ×2 (11:42→12:30)
[2023-12-26] MEDS: levoFLOXacin 250MG 50 ML IV SCH (11:43)
[2023-12-26] MEDS: FAMOTIDINE (10MG/ML) 2ML VL IV SCH (11:43)
[2023-12-26] MEDS: HEPARIN SODIUM (PORCINE) 5000 UNITS/ML 1ML VIAL SC SCH (11:53)
[2023-12-26] MEDS: DOPamine 3200MCG/ML 250 ML IV SCH (12:09)
[2023-12-26] MEDS: fentaNYL Drip 2500mCg/250mlNS 250 ML IV SCH (12:16)
[2023-12-26] MEDS: EPINEPHrine HCL INJECTION 16 MG in D5W 5% 234 ML IV SCH (12:30)
[2023-12-26] MEDS: EPINEPHrine HCL 250 ML IV ONE (15:52)
[2023-12-26] MEDS: PHENYLEPHRINE IV 250 ML IV ONE (15:52)
[2023-12-26] MEDS: cefTRIAXone 1GM/50ML D5W 50 ML IV ONE (15:52)
[2023-12-26] MEDS: PHENYLEPHRINE HCL 10 MG/ML VL ONE (15:52)
[2023-12-26 20:16] LABS: Base Excess -8.5 mmol/L (-2.0-2.0)
[2023-12-27] VITALS (107 sets, daily range): BP systolic 71–172; BP diastolic 44–94; PULSE 43–129; RESP 14–24; TEMP 97.3–99.9; O2SAT 89–100
[2023-12-27 02:54] LABS: Basophils # (auto) 0 10 ^3/uL (0-0.2); Basophils % (auto) 0.2 % (0.0-2.0); Eosinophils # (auto) 0 10 ^3/uL (0-0.8); Eosinophils % (auto) 0.1 % (0.0-7.0); Hematocrit 32.4 % (41.0-53.0); Hemoglobin 10.6 g/dL (13.5-17.5); Lymphocytes # (auto) 0.9 10 ^3/uL (0.4-5.4); Lymphocytes % (auto) 5.6 % (10.0-50.0); Mean Corpuscular Hemoglobin 29.1 pg (28.0-32.0); Mean Corpuscular Hgb Conc. 32.6 g/dL (32.0-36.0); Mean Corpuscular Volume 89.2 fL (80.0-100.0); Monocytes % (auto) 6.3 % (0.0-12.0); Neutrophils # (auto) 14.1 10 ^3/uL (1.6-8.6); Neutrophils % (auto) 87.8 % (37.0-80.0); Red Blood Cells 3.63 10^6/uL (4.5-5.90); Red Cell Distribution Width 14.2 % (11.8-14.3); White Blood Cell 16.1 10^3/uL (4.4-10.8)
[2023-12-27 03:11] LABS: Alanine Aminotransferase 328 U/L (7-40); Alkaline Phosphatase 125 U/L (46-116); Anion Gap 12 (5-15); BUN/Creatinine Ratio 28.1 (10.0-20.0); Calcium 7.3 mg/dL (8.7-10.4); Carbon Dioxide 24 mmol/L (20-30); Chloride 108 mmol/L (98-107); Glucose 177 mg/dL (74-106); Potassium 3.4 mmol/L (3.5-5.1); Sodium 144 mmol/L (136-145)
[2023-12-27 03:12] LABS: Albumin 2.3 g/dL (3.2-4.8); Aspartate Aminotransferase 324 U/L (13-40); Bilirubin, Total 0.2 mg/dL (0.2-1.0); Total Protein 4.9 g/dL (5.7-8.2)
[2023-12-27 03:22] LABS: Blood Urea Nitrogen 84 mg/dL (9-23)
[2023-12-27 07:13] LABS: Base Excess 0.2 mmol/L (-2.0-2.0)
[2023-12-27] MEDS: LACTATED RINGER'S 1,000 ML IV SCH (08:26)
[2023-12-27] MEDS: LINEZOLID 600MG/300ML 300 ML IV SCH (09:46)
[2023-12-27] MEDS: MEROPENEM 500MG IVPB 50 ML IV SCH (13:15)
[2023-12-27] MEDS: fentaNYL Drip 2500mCg/250mlNS 250 ML IV ONE (14:53)
[2023-12-27] MEDS: VASOPRESSIN 20 UNIT/ML ONE (14:53)
[2023-12-27] MEDS: NOREPINEPHRINE 8 MG/250ML KIT 250 ML IV ONE (14:53)
[2023-12-28] VITALS (106 sets, daily range): BP systolic 71–146; BP diastolic 42–86; PULSE 46–104; RESP 15–24; TEMP 97.7–99.7; O2SAT 92–99
[2023-12-28 04:14] LABS: Basophils # (auto) 0 10 ^3/uL (0-0.2); Basophils % (auto) 0.1 % (0.0-2.0); Eosinophils # (auto) 0 10 ^3/uL (0-0.8); Eosinophils % (auto) 0.1 % (0.0-7.0); Hematocrit 31.2 % (41.0-53.0); Hemoglobin 10.3 g/dL (13.5-17.5); Mean Corpuscular Hemoglobin 29.6 pg (28.0-32.0); Mean Corpuscular Hgb Conc. 33.1 g/dL (32.0-36.0); Mean Corpuscular Volume 89.4 fL (80.0-100.0); Monocytes # (auto) 1.1 10 ^3/uL (0-1.3); Neutrophils # (auto) 11.8 10 ^3/uL (1.6-8.6); Neutrophils % (auto) 84.8 % (37.0-80.0); Red Blood Cells 3.49 10^6/uL (4.5-5.90); White Blood Cell 13.9 10^3/uL (4.4-10.8)
[2023-12-28 04:36] LABS: Alanine Aminotransferase 255 U/L (7-40); Albumin 2.3 g/dL (3.2-4.8); Alkaline Phosphatase 157 U/L (46-116); Anion Gap 9 (5-15); Aspartate Aminotransferase 140 U/L (13-40); BUN/Creatinine Ratio 28.4 (10.0-20.0); Bilirubin, Total 0.4 mg/dL (0.2-1.0); Calcium 7.8 mg/dL (8.7-10.4); Carbon Dioxide 27 mmol/L (20-30); Chloride 110 mmol/L (98-107); Glucose 120 mg/dL (74-106); Potassium 3.1 mmol/L (3.5-5.1); Sodium 146 mmol/L (136-145)
[2023-12-28 04:39] LABS: Blood Urea Nitrogen 81 mg/dL (9-23)
[2023-12-28] MEDS: POTASSIUM CHL 20MEQ/100ML 100 ML IV ONE (06:00)
[2023-12-28 06:58] LABS: Base Excess -2.1 mmol/L (-2.0-2.0)
[2023-12-28] MEDS ORDERED: fentaNYL CITRATE 100 MCG/2 ML VL ONE (09:36)
[2023-12-28] MEDS ORDERED: SODIUM CHLORIDE LOCK 0 ML ONE (09:36)
[2023-12-28] MEDS ORDERED: MIDAZOLAM HCL 5 MG/ML-1ML VIAL ONE (09:36)
[2023-12-28] MEDS ORDERED: CLINIMIX PER PHARMACY 0 ML IV SCH (11:30)
[2023-12-28] MEDS: METOCLOPRAMIDE HCL 5MG/ml INJ 2ml VIAL IV SCH (14:45)
[2023-12-28] MEDS ORDERED: DEXTROSE (50%) 50ML SYRG IV PRN (17:00)
[2023-12-28] MEDS: InsuLIN REG 1unit/0.01ml Soln (100units/ml) SC SCH ×2 (17:00→21:59)
[2023-12-28] MEDS: ACCU-CHEK COMFORT CURVE STRIP VI SCH (17:14)
[2023-12-28] MEDS: AMINO ACID INFUSION IN D10W 1,000 ML IV SCH (20:44)
[2023-12-29] VITALS (100 sets, daily range): BP systolic 62–172; BP diastolic 36–86; PULSE 54–126; RESP 14–26; TEMP 96.4–98.6; O2SAT 59–100
[2023-12-29 04:29] LABS: Basophils # (auto) 0 10 ^3/uL (0-0.2); Basophils % (auto) 0.2 % (0.0-2.0); Eosinophils # (auto) 0 10 ^3/uL (0-0.8); Eosinophils % (auto) 0.3 % (0.0-7.0); Hematocrit 31.8 % (41.0-53.0); Hemoglobin 10.3 g/dL (13.5-17.5); Lymphocytes # (auto) 0.9 10 ^3/uL (0.4-5.4); Lymphocytes % (auto) 6.5 % (10.0-50.0); Mean Corpuscular Hemoglobin 29.2 pg (28.0-32.0); Mean Corpuscular Hgb Conc. 32.3 g/dL (32.0-36.0); Mean Corpuscular Volume 90.5 fL (80.0-100.0); Monocytes % (auto) 6.9 % (0.0-12.0); Neutrophils # (auto) 11.8 10 ^3/uL (1.6-8.6); Neutrophils % (auto) 86.1 % (37.0-80.0); Nucleated Red Blood Cells % 0.1 %; Red Blood Cells 3.52 10^6/uL (4.5-5.90); Red Cell Distribution Width 14.7 % (11.8-14.3); White Blood Cell 13.8 10^3/uL (4.4-10.8)
[2023-12-29 04:40] LABS: Alanine Aminotransferase 166 U/L (7-40); Albumin 2.3 g/dL (3.2-4.8); Alkaline Phosphatase 139 U/L (46-116); Anion Gap 8 (5-15); Aspartate Aminotransferase 62 U/L (13-40); BUN/Creatinine Ratio 28.9 (10.0-20.0); Bilirubin, Total 0.4 mg/dL (0.2-1.0); Blood Urea Nitrogen 76 mg/dL (9-23); Calcium 8.1 mg/dL (8.7-10.4); Carbon Dioxide 27 mmol/L (20-30); Chloride 114 mmol/L (98-107); Glucose 143 mg/dL (74-106); Magnesium 2.1 mg/dL (1.6-2.6); Phosphorus 4.8 mg/dL (2.4-5.1); Potassium 3.3 mmol/L (3.5-5.1); Sodium 149 mmol/L (136-145); Total Protein 4.9 g/dL (5.7-8.2)
[2023-12-29] MEDS: POTASSIUM CHL 20MEQ/100ML 100 ML IV ONE (07:39)
[2023-12-29] MEDS ORDERED: NALOXONE HCL 0.4 MG/ML VIAL ONE (08:20)
[2023-12-29] MEDS ORDERED: FLUMAZENIL 0.1 MG/ML INJ 10ML MDV IV ONE (08:20)
[2023-12-29] MEDS ORDERED: SODIUM CHLORIDE LOCK 0 ML ONE (08:20)
[2023-12-29] MEDS ORDERED: MIDAZOLAM HCL 5 MG/ML-1ML VIAL ONE (08:21)
[2023-12-29] MEDS ORDERED: fentaNYL CITRATE 100 MCG/2 ML VL ONE (08:21)
[2023-12-29] MEDS ORDERED: diphenhdrAMINE HCL 50 MG/1 ML VL ONE (08:21)
[2023-12-29] MEDS ORDERED: TPN PER PHARMACY 0 ML IV SCH (13:45)
[2023-12-29] MEDS: D5W 5% 1,000 ML IV SCH (14:19)
[2023-12-29] MEDS: PHENYLEPHRINE IV 250 ML IV ONE (16:05)
[2023-12-29] MEDS: PHENYLEPHRINE IV 250 ML IV SCH (16:05)
[2023-12-29 16:17] LABS: Alanine Aminotransferase 131 U/L (7-40); Albumin 2.2 g/dL (3.2-4.8); Alkaline Phosphatase 140 U/L (46-116); Anion Gap 6 (5-15); Aspartate Aminotransferase 46 U/L (13-40); BUN/Creatinine Ratio 29.2 (10.0-20.0); Blood Urea Nitrogen 68 mg/dL (9-23); Calcium 7.8 mg/dL (8.7-10.4); Carbon Dioxide 27 mmol/L (20-30); Chloride 116 mmol/L (98-107); Glucose 162 mg/dL (74-106); Magnesium 1.9 mg/dL (1.6-2.6); Potassium 3.2 mmol/L (3.5-5.1); Sodium 149 mmol/L (136-145)
[2023-12-29 16:18] LABS: Bilirubin, Total 0.5 mg/dL (0.2-1.0); Total Protein 4.8 g/dL (5.7-8.2)
[2023-12-29] MEDS: POTASSIUM CHL 20MEQ/100ML 100 ML IV SCH (16:52)
[2023-12-29] MEDS: MAGNESIUM SULFATE 1GM/100ML 100 ML IV ONE (17:33)
[2023-12-30] VITALS (98 sets, daily range): BP systolic 80–161; BP diastolic 46–77; PULSE 53–149; RESP 16–26; TEMP 97.5–99.3; O2SAT 91–100
[2023-12-30 03:58] LABS: Basophils # (auto) 0 10 ^3/uL (0-0.2); Basophils % (auto) 0.1 % (0.0-2.0); Eosinophils # (auto) 0.3 10 ^3/uL (0-0.8); Eosinophils % (auto) 1.5 % (0.0-7.0); Hematocrit 32.4 % (41.0-53.0); Hemoglobin 10.4 g/dL (13.5-17.5); Lymphocytes # (auto) 0.7 10 ^3/uL (0.4-5.4); Mean Corpuscular Hemoglobin 29.5 pg (28.0-32.0); Mean Corpuscular Hgb Conc. 32.2 g/dL (32.0-36.0); Mean Corpuscular Volume 91.6 fL (80.0-100.0); Monocytes % (auto) 5.6 % (0.0-12.0); Neutrophils # (auto) 15.8 10 ^3/uL (1.6-8.6); Neutrophils % (auto) 88.8 % (37.0-80.0); Red Blood Cells 3.54 10^6/uL (4.5-5.90); Red Cell Distribution Width 14.4 % (11.8-14.3); White Blood Cell 17.8 10^3/uL (4.4-10.8)
[2023-12-30 04:12] LABS: Alanine Aminotransferase 104 U/L (7-40); Albumin 2.1 g/dL (3.2-4.8); Alkaline Phosphatase 144 U/L (46-116); Anion Gap 7 (5-15); BUN/Creatinine Ratio 30.4 (10.0-20.0); Blood Urea Nitrogen 65 mg/dL (9-23); Calcium 7.9 mg/dL (8.7-10.4); Carbon Dioxide 25 mmol/L (20-30); Chloride 115 mmol/L (98-107); Glucose 138 mg/dL (74-106); Magnesium 1.9 mg/dL (1.6-2.6); Potassium 3.5 mmol/L (3.5-5.1); Sodium 147 mmol/L (136-145)
[2023-12-30 04:13] LABS: Aspartate Aminotransferase 37 U/L (13-40); Bilirubin, Total 0.7 mg/dL (0.2-1.0); Phosphorus 2.9 mg/dL (2.4-5.1); Total Protein 4.8 g/dL (5.7-8.2)
[2023-12-30 04:39] LABS: Triglycerides 107 mg/dL (< 150)
[2023-12-30 07:38] LABS: Base Excess -2.6 mmol/L (-2.0-2.0)
[2023-12-30 08:24] LABS: Hepatitis B Surface Antibody Negative (Negative)
[2023-12-30 08:36] LABS: Hepatitis B Surface Antigen Negative (Negative)
[2023-12-30 08:58] LABS: Hepatitis B Core IgM Negative
[2023-12-30] MEDS: FUROSEMIDE 100 MG/10ML VIAL IV ONE (11:23)
[2023-12-30] MEDS: PANTOPRAZOLE 40 MG/10 ML VIAL INJ IV ONE (12:02)
[2023-12-30] MEDS: TPN PER PHARMACY IV NR (21:08)
[2023-12-31] VITALS (111 sets, daily range): BP systolic 68–155; BP diastolic 38–92; PULSE 86–144; RESP 20–28; TEMP 97.2–99.5; O2SAT 80–100
[2023-12-31 04:30] LABS: Basophils # (auto) 0 10 ^3/uL (0-0.2); Basophils % (auto) 0.2 % (0.0-2.0); Eosinophils # (auto) 0.6 10 ^3/uL (0-0.8); Eosinophils % (auto) 3.3 % (0.0-7.0); Hematocrit 32.2 % (41.0-53.0); Hemoglobin 10.2 g/dL (13.5-17.5); Lymphocytes # (auto) 0.9 10 ^3/uL (0.4-5.4); Lymphocytes % (auto) 5.2 % (10.0-50.0); Mean Corpuscular Hemoglobin 29.1 pg (28.0-32.0); Mean Corpuscular Hgb Conc. 31.8 g/dL (32.0-36.0); Mean Corpuscular Volume 91.3 fL (80.0-100.0); Monocytes # (auto) 0.8 10 ^3/uL (0-1.3); Monocytes % (auto) 4.7 % (0.0-12.0); Neutrophils # (auto) 15.2 10 ^3/uL (1.6-8.6); Neutrophils % (auto) 86.6 % (37.0-80.0); Nucleated Red Blood Cells % 0.1 %; Red Blood Cells 3.52 10^6/uL (4.5-5.90); Red Cell Distribution Width 14.7 % (11.8-14.3); White Blood Cell 17.6 10^3/uL (4.4-10.8)
[2023-12-31 04:42] LABS: Alanine Aminotransferase 65 U/L (7-40); Alkaline Phosphatase 143 U/L (46-116); Anion Gap 6 (5-15); Aspartate Aminotransferase 30 U/L (13-40); BUN/Creatinine Ratio 32.2 (10.0-20.0); Blood Urea Nitrogen 56 mg/dL (9-23); Calcium 7.7 mg/dL (8.7-10.4); Carbon Dioxide 25 mmol/L (20-30); Chloride 114 mmol/L (98-107); Glucose 157 mg/dL (74-106); Magnesium 1.9 mg/dL (1.6-2.6); Phosphorus 2.7 mg/dL (2.4-5.1); Potassium 3.2 mmol/L (3.5-5.1); Sodium 145 mmol/L (136-145); Total Protein 4.6 g/dL (5.7-8.2)
[2023-12-31 07:49] LABS: Base Excess -2.7 mmol/L (-2.0-2.0)
[2023-12-31] MEDS: POTASSIUM CHL 20MEQ/100ML 100 ML IV ONE ×2 (08:24→14:30)
[2023-12-31] MEDS: PANTOPRAZOLE 40 MG/10 ML VIAL INJ IV SCH (09:44)
[2023-12-31] MEDS: FUROSEMIDE 20 MG/2 ML VIAL IV ONE (17:29)
[2023-12-31] MEDS: ALBUMIN 25% 100 ML IV SCH (19:51)
[2023-12-31] MEDS: TPN PER PHARMACY IV NR (20:39)
[2024-01-01] VITALS (109 sets, daily range): BP systolic 45–174; BP diastolic 23–85; PULSE 61–145; RESP 20–29; TEMP 94.3–98.8; O2SAT 91–99
[2024-01-01 02:10] LABS: Basophils # (auto) 0.1 10 ^3/uL (0-0.2); Basophils % (auto) 0.6 % (0.0-2.0); Eosinophils # (auto) 0.6 10 ^3/uL (0-0.8); Eosinophils % (auto) 3.3 % (0.0-7.0); Hematocrit 31.5 % (41.0-53.0); Hemoglobin 10.1 g/dL (13.5-17.5); Lymphocytes # (auto) 0.9 10 ^3/uL (0.4-5.4); Lymphocytes % (auto) 4.7 % (10.0-50.0); Mean Corpuscular Hemoglobin 29.2 pg (28.0-32.0); Mean Corpuscular Hgb Conc. 32.1 g/dL (32.0-36.0); Mean Corpuscular Volume 91.2 fL (80.0-100.0); Monocytes # (auto) 1.3 10 ^3/uL (0-1.3); Neutrophils # (auto) 15.7 10 ^3/uL (1.6-8.6); Neutrophils % (auto) 84.4 % (37.0-80.0); Nucleated Red Blood Cells % 0.1 %; Red Blood Cells 3.46 10^6/uL (4.5-5.90); Red Cell Distribution Width 14.6 % (11.8-14.3); White Blood Cell 18.6 10^3/uL (4.4-10.8)
[2024-01-01 02:28] LABS: Alanine Aminotransferase 46 U/L (7-40); Albumin 2.5 g/dL (3.2-4.8); Alkaline Phosphatase 147 U/L (46-116); Anion Gap 7 (5-15); Aspartate Aminotransferase 36 U/L (13-40); BUN/Creatinine Ratio 32.3 (10.0-20.0); Bilirubin, Total 1.9 mg/dL (0.2-1.0); Blood Urea Nitrogen 54 mg/dL (9-23); Calcium 7.5 mg/dL (8.7-10.4); Carbon Dioxide 23 mmol/L (20-30); Chloride 115 mmol/L (98-107); Glucose 137 mg/dL (74-106); Phosphorus 3.6 mg/dL (2.4-5.1); Potassium 3.8 mmol/L (3.5-5.1); Sodium 145 mmol/L (136-145); Total Protein 5.1 g/dL (5.7-8.2)
[2024-01-01 07:09] LABS: Base Excess -2.5 mmol/L (-2.0-2.0)
[2024-01-01] MEDS: ALBUMIN 25% 100 ML IV SCH (17:28)
[2024-01-01] MEDS: PHENYLEPHRINE INJ 80 MG in SODIUM CHL 0.9% 242 ML IV SCH (18:43)
[2024-01-01] MEDS: TPN PER PHARMACY IV NR (20:20)
[2024-01-01] MEDS ORDERED: dilTIAZem 25 MG/5 ML VIAL IV PRN (21:45)
[2024-01-01] MEDS: MEROPENEM 1GM IVPB 50 ML IV SCH (22:38)
[2024-01-02] VITALS (101 sets, daily range): BP systolic 83–178; BP diastolic 48–76; PULSE 46–140; RESP 14–29; TEMP 91.2–97.9; O2SAT 84–99
[2024-01-02 03:44] LABS: Basophils # (auto) 0.1 10 ^3/uL (0-0.2); Basophils % (auto) 0.5 % (0.0-2.0); Eosinophils # (auto) 0.8 10 ^3/uL (0-0.8); Hematocrit 27.6 % (41.0-53.0); Lymphocytes # (auto) 0.6 10 ^3/uL (0.4-5.4); Lymphocytes % (auto) 3.9 % (10.0-50.0); Mean Corpuscular Hemoglobin 29.4 pg (28.0-32.0); Mean Corpuscular Hgb Conc. 32.4 g/dL (32.0-36.0); Mean Corpuscular Volume 90.6 fL (80.0-100.0); Monocytes # (auto) 1.4 10 ^3/uL (0-1.3); Monocytes % (auto) 9.4 % (0.0-12.0); Neutrophils # (auto) 12.4 10 ^3/uL (1.6-8.6); Neutrophils % (auto) 81.2 % (37.0-80.0); Nucleated Red Blood Cells % 0.1 %; Red Blood Cells 3.05 10^6/uL (4.5-5.90); Red Cell Distribution Width 14.7 % (11.8-14.3); White Blood Cell 15.2 10^3/uL (4.4-10.8)
[2024-01-02 03:59] LABS: Alanine Aminotransferase 31 U/L (7-40); Albumin 2.9 g/dL (3.2-4.8); Alkaline Phosphatase 113 U/L (46-116); Anion Gap 7 (5-15); Aspartate Aminotransferase 46 U/L (13-40); BUN/Creatinine Ratio 29.2 (10.0-20.0); Blood Urea Nitrogen 47 mg/dL (9-23); Calcium 8.3 mg/dL (8.7-10.4); Carbon Dioxide 25 mmol/L (20-30); Chloride 116 mmol/L (98-107); Glucose 135 mg/dL (74-106); Magnesium 2.3 mg/dL (1.6-2.6); Potassium 3.3 mmol/L (3.5-5.1); Sodium 148 mmol/L (136-145)
[2024-01-02 04:00] LABS: Bilirubin, Total 2.3 mg/dL (0.2-1.0); Total Protein 5.2 g/dL (5.7-8.2)
[2024-01-02 07:17] LABS: Base Excess -1.4 mmol/L (-2.0-2.0)
[2024-01-02] MEDS: POTASSIUM CHL 20MEQ/100ML 100 ML IV ONE (09:35)
[2024-01-02] MEDS: TPN PER PHARMACY IV NR (20:50)
[2024-01-03] VITALS (104 sets, daily range): BP systolic 75–130; BP diastolic 48–72; PULSE 62–120; RESP 19–31; TEMP 91.6–98.8; O2SAT 84–100
[2024-01-03] MEDS ORDERED: DEXTROSE (50%) 50ML SYRG IV SCH
[2024-01-03] MEDS: ACCU-CHEK COMFORT CURVE STRIP VI SCH (00:10)
[2024-01-03] MEDS: InsuLIN REG 1unit/0.01ml Soln (100units/ml) SC SCH (00:10)
[2024-01-03 04:19] LABS: Basophils # (auto) 0.1 10 ^3/uL (0-0.2); Basophils % (auto) 0.6 % (0.0-2.0); Eosinophils # (auto) 0.5 10 ^3/uL (0-0.8); Eosinophils % (auto) 3.8 % (0.0-7.0); Hematocrit 26.6 % (41.0-53.0); Hemoglobin 8.6 g/dL (13.5-17.5); Lymphocytes # (auto) 0.6 10 ^3/uL (0.4-5.4); Mean Corpuscular Hemoglobin 29.6 pg (28.0-32.0); Mean Corpuscular Hgb Conc. 32.5 g/dL (32.0-36.0); Mean Corpuscular Volume 91.1 fL (80.0-100.0); Monocytes # (auto) 1.3 10 ^3/uL (0-1.3); Monocytes % (auto) 9.6 % (0.0-12.0); Neutrophils # (auto) 11.6 10 ^3/uL (1.6-8.6); Red Blood Cells 2.92 10^6/uL (4.5-5.90); Red Cell Distribution Width 14.6 % (11.8-14.3); White Blood Cell 14.1 10^3/uL (4.4-10.8)
[2024-01-03 04:37] LABS: Alanine Aminotransferase 37 U/L (7-40); Albumin 2.9 g/dL (3.2-4.8); Alkaline Phosphatase 112 U/L (46-116); Anion Gap 9 (5-15); Aspartate Aminotransferase 67 U/L (13-40); BUN/Creatinine Ratio 31.1 (10.0-20.0); Blood Urea Nitrogen 46 mg/dL (9-23); Calcium 8.5 mg/dL (8.7-10.4); Carbon Dioxide 25 mmol/L (20-30); Chloride 119 mmol/L (98-107); Glucose 146 mg/dL (74-106); Magnesium 2.3 mg/dL (1.6-2.6); Phosphorus 2.8 mg/dL (2.4-5.1); Potassium 3.4 mmol/L (3.5-5.1)
[2024-01-03 04:38] LABS: Bilirubin, Total 2.8 mg/dL (0.2-1.0); Sodium 153 mmol/L (136-145); Total Protein 5.1 g/dL (5.7-8.2)
[2024-01-03 07:16] LABS: Base Excess -0.7 mmol/L (-2.0-2.0)
[2024-01-03] MEDS: POTASSIUM CHL 20MEQ/100ML 100 ML IV ONE (11:12)
[2024-01-03] MEDS: CATHFLO ACTIVASE (ALTEPLASE) 2 MG VIAL IV ONE (13:41)
[2024-01-03] MEDS: D5W 5% 1,000 ML IV SCH (14:29)
[2024-01-03] MEDS: TPN PER PHARMACY IV NR (20:42)
[2024-01-04] VITALS (108 sets, daily range): BP systolic 81–123; BP diastolic 48–70; PULSE 69–108; RESP 11–28; TEMP 97.2–99.9; O2SAT 84–98
[2024-01-04 05:15] LABS: Basophils # (auto) 0.1 10 ^3/uL (0-0.2); Basophils % (auto) 0.9 % (0.0-2.0); Eosinophils # (auto) 0.9 10 ^3/uL (0-0.8); Eosinophils % (auto) 4.9 % (0.0-7.0); Hematocrit 28.9 % (41.0-53.0); Hemoglobin 9.2 g/dL (13.5-17.5); Lymphocytes # (auto) 0.9 10 ^3/uL (0.4-5.4); Lymphocytes % (auto) 4.9 % (10.0-50.0); Mean Corpuscular Hemoglobin 29.3 pg (28.0-32.0); Mean Corpuscular Hgb Conc. 31.9 g/dL (32.0-36.0); Mean Corpuscular Volume 91.8 fL (80.0-100.0); Monocytes # (auto) 1.9 10 ^3/uL (0-1.3); Monocytes % (auto) 10.6 % (0.0-12.0); Neutrophils # (auto) 13.8 10 ^3/uL (1.6-8.6); Neutrophils % (auto) 78.7 % (37.0-80.0); Red Blood Cells 3.15 10^6/uL (4.5-5.90); Red Cell Distribution Width 15.2 % (11.8-14.3); White Blood Cell 17.6 10^3/uL (4.4-10.8)
[2024-01-04 05:33] LABS: Alanine Aminotransferase 57 U/L (7-40); Albumin 2.9 g/dL (3.2-4.8); Alkaline Phosphatase 146 U/L (46-116); Anion Gap 7 (5-15); Aspartate Aminotransferase 104 U/L (13-40); BUN/Creatinine Ratio 33.3 (10.0-20.0); Blood Urea Nitrogen 51 mg/dL (9-23); Calcium 8.7 mg/dL (8.7-10.4); Carbon Dioxide 25 mmol/L (20-30); Chloride 119 mmol/L (98-107); Glucose 139 mg/dL (74-106); Magnesium 2.1 mg/dL (1.6-2.6); Phosphorus 4.1 mg/dL (2.4-5.1); Potassium 4.3 mmol/L (3.5-5.1); Sodium 151 mmol/L (136-145)
[2024-01-04 05:34] LABS: Bilirubin, Total 2.9 mg/dL (0.2-1.0); Total Protein 5.5 g/dL (5.7-8.2)
[2024-01-04 11:30] LABS: Base Excess -2.8 mmol/L (-2.0-2.0)
[2024-01-04] MEDS ORDERED: TPN PER PHARMACY IV NR (20:00)
[2024-01-05] VITALS (80 sets, daily range): BP systolic 51–123; BP diastolic 29–64; PULSE 68–125; RESP 11–27; TEMP 97.9–98.4; O2SAT 23–97
[2024-01-05 04:13] LABS: Alanine Aminotransferase 61 U/L (7-40); Albumin 2.7 g/dL (3.2-4.8); Alkaline Phosphatase 163 U/L (46-116); Anion Gap 8 (5-15); Aspartate Aminotransferase 98 U/L (13-40); BUN/Creatinine Ratio 35.9 (10.0-20.0); Bilirubin, Total 3.7 mg/dL (0.2-1.0); Blood Urea Nitrogen 52 mg/dL (9-23); Calcium 8.7 mg/dL (8.7-10.4); Carbon Dioxide 24 mmol/L (20-30); Chloride 117 mmol/L (98-107); Glucose 92 mg/dL (74-106); Phosphorus 4.7 mg/dL (2.4-5.1); Potassium 5.1 mmol/L (3.5-5.1); Sodium 149 mmol/L (136-145); Total Protein 5.5 g/dL (5.7-8.2)
[2024-01-05 07:37] LABS: Base Excess -3.7 mmol/L (-2.0-2.0)
[2024-01-05 11:48] LABS: Basophils # (auto) 0.2 10 ^3/uL (0-0.2); Basophils % (auto) 0.9 % (0.0-2.0); Eosinophils # (auto) 0.6 10 ^3/uL (0-0.8); Eosinophils % (auto) 3.4 % (0.0-7.0); Hematocrit 28.9 % (41.0-53.0); Hemoglobin 8.9 g/dL (13.5-17.5); Lymphocytes # (auto) 0.8 10 ^3/uL (0.4-5.4); Lymphocytes % (auto) 4.7 % (10.0-50.0); Mean Corpuscular Hemoglobin 28.5 pg (28.0-32.0); Mean Corpuscular Hgb Conc. 30.7 g/dL (32.0-36.0); Mean Corpuscular Volume 92.8 fL (80.0-100.0); Monocytes # (auto) 1.7 10 ^3/uL (0-1.3); Monocytes % (auto) 9.6 % (0.0-12.0); Neutrophils # (auto) 14.3 10 ^3/uL (1.6-8.6); Neutrophils % (auto) 81.4 % (37.0-80.0); Nucleated Red Blood Cells % 0.1 %; Red Blood Cells 3.11 10^6/uL (4.5-5.90); Red Cell Distribution Width 15.3 % (11.8-14.3); White Blood Cell 17.6 10^3/uL (4.4-10.8)
[2024-01-05] MEDS ORDERED: MORPHINE SULFATE INJ 2 MG/ml SYRG IV PRN (14:45)
[2024-01-05] MEDS: LORazepam 2MG/ML-1ML VIAL IV PRN (16:53)
[2024-01-05] MEDS: MORPHINE SULFATE INJ 2 MG/ml SYRG IV PRN (16:53)
== END 2024-01-06 01:30 | DRG 870 ==
LOC: UNDOADMIN 22:54 → ICU WEST 22:54
PROVIDERS: ADMIT Nurse Practitioner Family; ATTEND Internal Medicine
PROC: 5A1955Z Respiratory Ventilation, Greater than 96 Consecutive Hours (ICD-10-PCS; principal; 2023-12-26)
PROC: 5A09357 Assistance with Respiratory Ventilation, Less than 24 Consecutive Hours, Continuous Positive Airway Pressure (ICD-10-PCS; 2023-12-26)
PROC: 04HY32Z Insertion of Monitoring Device into Lower Artery, Percutaneous Approach (ICD-10-PCS; 2023-12-26)
PROC: 0W9B30Z Drainage of Left Pleural Cavity with Drainage Device, Percutaneous Approach (ICD-10-PCS; 2023-12-26)
PROC: 5A12012 Performance of Cardiac Output, Single, Manual (ICD-10-PCS; 2023-12-26)
PROC: 04HK33Z Insertion of Infusion Device into Right Femoral Artery, Percutaneous Approach (ICD-10-PCS; 2023-12-26)
PROC: B44LZZ3 Ultrasonography of Femoral Artery, Intravascular (ICD-10-PCS; 2023-12-26)
PROC: 0DB58ZX Excision of Esophagus, Via Natural or Artificial Opening Endoscopic, Diagnostic (ICD-10-PCS; 2023-12-29)
DX: A41.50 Gram-negative sepsis, unspecified (principal); J96.01 Acute respiratory failure with hypoxia; N17.0 Acute kidney failure with tubular necrosis; R65.21 Severe sepsis with septic shock; K72.00 Acute and subacute hepatic failure without coma; J93.0 Spontaneous tension pneumothorax; J15.69 Pneumonia due to other Gram-negative bacteria; J69.0 Pneumonitis due to inhalation of food and vomit; E87.21 Acute metabolic acidosis; J44.1 Chronic obstructive pulmonary disease with (acute) exacerbation; N18.4 Chronic kidney disease, stage 4 (severe); E44.0 Moderate protein-calorie malnutrition; E87.0 Hyperosmolality and hypernatremia; Z99.11 Dependence on respirator [ventilator] status; Z68.1 Body mass index [BMI] 19.9 or less, adult; J93.82 Other air leak; I31.39 Other pericardial effusion (noninflammatory); J44.0 Chronic obstructive pulmonary disease with (acute) lower respiratory infection; E87.29 Other acidosis; Z66 Do not resuscitate; I46.9 Cardiac arrest, cause unspecified; R74.01 Elevation of levels of liver transaminase levels; R73.9 Hyperglycemia, unspecified; E88.09 Other disorders of plasma-protein metabolism, not elsewhere classified; F41.9 Anxiety disorder, unspecified; D64.9 Anemia, unspecified; K22.2 Esophageal obstruction; D69.6 Thrombocytopenia, unspecified; I49.9 Cardiac arrhythmia, unspecified; J43.9 Emphysema, unspecified; Z88.0 Allergy status to penicillin
CPT/HCPCS: 36415; 36600; 70450; 71045; 74021; 74176; 80053; 80202; 81001; 82306; 82570; 82805; 82962; 83036; 83605; 83735; 83970; 84100; 84156; 84478; 85007; 85025; 85027; 86703; 86705; 86706; 86803; 87040; 87070; 87081; 87086; 87205; 87340; 92950; 93005; 93306; 94002; 94003; C9113; G0378; J0171; J1265; J1815; J2185; J2250; J3480; J3490; J7060; P9047